=== PATIENT | male | born 1975 | race African-American/Black ===

== ENCOUNTER 2017-03-28 02:32 | Emergency (ER) | payer BC, OTHER ==
[~2017-03-28] VITALS: Ht 172.7 cm; Wt 102.1 kg
[2017-03-28] MEDS ORDERED: oxyCODONE/APAP 5/325MG (PERCOCET 5) TABLET PO STA (04:50)
[2017-03-28] MEDS ORDERED: LIDOCAINE 1% INJ 20 ML (XYLOCAINE) VIAL INJ STA (04:50)
[2017-03-28] MEDS ORDERED: oxyCODONE/APAP 5/325MG (PERCOCET 5) TABLET ONE (04:51)
--- NOTE | 2017-03-28 05:03 | ED Integumentary General ---
General Chief Complaint: Skin/Wound Problems Stated Complaint: BOIL ON BACK Nursing Triage Note: PT TO ED 6 W/ C/O "BOIL ON BACKSIDE" ONSET X2 DAYS, WORSE THIS AM. Source: patient Exam Limitations: no limitations History of Present Illness Time seen by provider: 04:45 Initial Comments Here with report of abscess to the buttocks on the left side but also towards the middle. Has history of multiple abscesses. States he can sometimes get them to drain on his own by soaking but this one did not drain. Reports pain is quite severe and woke him up tonight. He usually has drain and put on antibiotics that either Keflex or Bactrim. Patient is from [place] and is currently here on a job assignment. Timing/Duration: getting worse, other (2 days) Severity: moderate Location: torso (buttocks) Possible Cause: no cause identified Associated Symptoms: change in skin texture, edema, No fever Allergies and Home Medications Allergies Coded Allergies: No Known Drug Allergies (Unverified , 03/28/17) Constitutional: see HPI Respiratory: no symptoms reported Cardiovascular: no symptoms reported Gastrointestinal: no symptoms reported, No abdominal pain, No nausea, No vomiting Skin: see HPI, lesions Psychiatric/Neurological: No Symptoms Reported Past [id number] Hx Patient Social History Alcohol Use: Occasionally Uses Recreational Drug Use: No Smoking Status: Current Everyday Smoker Type Used: Cigarettes Recent Foreign Travel: No Contact w/Someone Who Travel: No Recent Infectious Disease Expo: No Recent Hopitalizations: No Physical Abuse: No Sexual Abuse: No Mistreated: No Fear: No Surgeries History of Surgeries: No Respiratory History of Respiratory Disorde: No Cardiovascular History of Cardiac Disorders: No Neurological History of Neurological Disord: No Genitourinary History of Genitourinary Disor: No Gastrointestinal History of Gastrointestinal Di: No Musculoskeletal History of Musculoskeletal Dis: No Endocrine History of Endocrine Disorders: No HEENT History of HEENT Disorders: No Cancer History of Cancer: No Psychosocial History of Psychiatric Problem: No Suicide Risk Score: 0 Integumentary History of Skin or Integumenta: No Reviewed Nursing Assessment Reviewed/Agree w Nursing PMH: Yes Family Medical History Significant Family History: No Pertinent Family Hx Physical Exam Vital Signs Vital Sign - Last 12Hours 03/28/17 03:12 Temp 87.0 Pulse 18 Resp 16 B/P (MAP) 141/83 (102) Pulse Ox 99 O2 Delivery Room Air Capillary Refill : Less Than 3 Seconds General Appearance: WD/WN, no apparent distress Cardiovascular: regular rate, rhythm, no murmur Respiratory: lungs clear, normal breath sounds Gastrointestinal: non tender, soft Skin: warm/dry Skin Problem Location: other (left buttock) Skin Problem Character: abscess (2 x 8 cm), erythema I&D : Blade Size: 11 I & D Procedure: betadine prep Progress Anesthetized with 15 mL of 1 percent lidocaine. This completely surrounding the track. I did a place a 2 cm incision centrally within the wound. Indurated tissue noted but no significant purulent drainage obtained. Has a smaller abscess lower of approximately 2 x 2 centimeters that was unroofed wound cleaning and culture was obtained from that. Covered with dressing. Progress/Results/Core Measures Results/Orders My Orders Orders - WILTON ESCOTO MD Oxycodone/Apap 5/325mg Tablet (Percocet (03/28/17 04:50) Lidocaine 1% Injection (Xylocaine 1% Inj (03/28/17 04:50) Wound Culture (03/28/17 04:50) Oxycodone/Apap 5/325mg Tablet (Percocet (03/28/17 04:51) Sulfamethoxazole/Trimet Ds Tab (Bactrim (03/28/17 06:46) Sulfamethoxazole/Trimet Ds Tab (Bactrim (03/28/17 06:45) Vital Signs/I&O Vital Sign - Last 12Hours 03/28/17 03:12 Temp 87.0 Pulse 18 Resp 16 B/P (MAP) 141/83 (102) Pulse Ox 99 O2 Delivery Room Air Blood Pressure Mean: 102 Progress Note : Progress Note Seen and evaluated. Percocet 2 tabs by mouth. We will do I&D to the large abscess to the left buttock with wound culture. 0645: I&D attempted. Has significant amount of induration throughout the tissue but no significant purulent drainage obtained. Bactrim DS 2 tabs by mouth now and we will continue that outpatient. Discharged home with return precautions. Patient verbalize understanding of instructions and agreement with plan. Go pack given Bactroban ointment Departure Impression Impression: Primary Impression: Abscess Disposition: 01 HOME, SELF-CARE Condition: Stable Departure-Patient Inst. Decision time for Depature: 06:49 Referrals: NO,LOCAL PHYSICIAN (PCP) Primary Care Physician Patient Instructions: Skin Abscess, Wound Incision and Drainage (DC) Add. Discharge Instructions: All discharge instructions reviewed with patient and/or family. Voiced understanding. Use antibiotic ointment and bandages over wound twice daily. You may soak the wound once or twice as needed as well. Take antibiotics as directed. Take pain medication as directed. You may take ibuprofen 800 mg every 8 hours as needed as well for pain. Follow-up with your Dr. in a few days for recheck. Return for worse pain, swelling, fever, weakness, difficulty with going to the bathroom or other concerns as needed. Scripts Sulfamethoxazole/Trimethoprim (Sulfamethoxazole-Tmp Ds Tablet) 1 Each Tablet 1 EACH PO BID, #20 TAB 0 Refills Prov: WILTON ESCOTO MD 03/28/17 Oxycodone HCl/Acetaminophen (Oxycodone-Acetaminophen 5-325) 1 Each Tablet 1-2 EACH PO Q6H Y for PAIN, #20 TAB 0 Refills Prov: WILTON ESCOTO MD 03/28/17 WILTON ESCOTO MD Mar 28, 2017 05:03
[2017-03-28] MEDS ORDERED: LIDOCAINE 1% INJ 50 ML (XYLOCAINE) VIAL ONE (06:08)
[2017-03-28] MEDS ORDERED: TRIM/SULFAMETH 160/800 (SEPTRA DS) TAB PO ONE (06:45)
[2017-03-28] MEDS ORDERED: TRIM/SULFAMETH 160/800 (SEPTRA DS) TAB PO STA (06:46)
[2017-03-28] MEDS ORDERED: RX-MUPIROCIN (BACTROBAN) 2% OINT 22 GM TUBE TOP STA (06:48)
[2017-03-28] MEDS ORDERED: OXYC-471 PO (06:52)
[2017-03-28] MEDS ORDERED: SULF-222 PO (06:52)
[2017-03-28 06:55] VITALS: BP 140/80
== END 2017-03-28 06:50 | disposition home or self-care (01) ==
LOC: ER 02:37
DX: L02.31 Cutaneous abscess of buttock (principal); F17.210 Nicotine dependence, cigarettes, uncomplicated; Z87.2 Personal history of diseases of the skin and subcutaneous tissue
CPT/HCPCS: 87070; 87205; 99283